=== PATIENT | male | born 1975 | race African-American/Black ===

== ENCOUNTER 2022-11-05 17:04 | Emergency (ER) | payer BC ==
[~2022-11-05] VITALS: Ht 177.8 cm; Wt 86.2 kg
[2022-11-05 17:43] VITALS: BP_SYST 121
[2022-11-05] MEDS ORDERED: LIDOCAINE/EPI 1% 1:100000 20 ML VIAL INJ ONE (19:30)
--- NOTE | 2022-11-05 19:30 | NUR ---
Placed pt in the camp way by Dr Hernández.
--- NOTE | 2022-11-05 19:30 | NUR ---
17:49hr seen and examined by Dr Hernández in the waiting room.
[2022-11-05] MEDS ORDERED: LIDOCAINE 1%, 20 ML MDV 20 ML ONE (19:36)
--- NOTE | 2022-11-05 19:50 | NUR ---
Laceration repaired pt laceration to forehead.
[2022-11-05 20:00] VITALS: BP_SYST 119
--- NOTE | 2022-11-05 20:00 | NUR ---
Patient given written and verbal discharge instructions by Dr Hernández and verbalizes understanding. ER MD discussed with patient the results and treatment provided. Patient in stable condition. ID arm band removed. NO Rx of given. Patient educated on pain management and to follow up with PMD. Pain Scale 6/10. Opportunity for questions provided and answered. Medication side effect fact sheet provided.
== END 2022-11-05 20:00 | disposition home or self-care (01) ==
LOC: SED 17:04
DX: S01.81XA Laceration without foreign body of other part of head, initial encounter (principal); R55 Syncope and collapse; R53.1 Weakness; E16.2 Hypoglycemia, unspecified; I10 Essential (primary) hypertension; Z79.899 Other long term (current) drug therapy; W01.198A Fall on same level from slipping, tripping and stumbling with subsequent striking against other object, initial encounter; Y93.89 Activity, other specified; Y92.89 Other specified places as the place of occurrence of the external cause; Y99.8 Other external cause status
CPT/HCPCS: 99284; 70450; 76376; 12013; J2001